=== PATIENT | female | born 1990 | race Caucasian/White ===

== ENCOUNTER 2018-06-12 12:40 | Emergency (ER) | payer OTHER ==
[2018-06-12 12:44] VITALS: BP 134/82
[2018-06-12] MEDS ORDERED: IV NORMAL SALINE 1,000ML 1,000 ML IV SCH (12:52)
--- NOTE | 2018-06-12 13:08 | PHYS DOC ---
Past History Past Medical History: No Pertinent History Past Surgical History: No Surgical History Alcohol Use: None Drug Use: None Adult General Chief Complaint Chief Complaint: VOMITING IN HPI HPI Patient is a 28 year old female at 36 weeks of gestation with LMP of 2018 present with complaining of nausea and vomiting. Patient states she has had nausea and vomiting. x 1-2 a day during her and usually gets treatment with Zofran and unusually coming to hospital for IV fluid treatment. Patient complaining of increasing episodes of nausea and vomiting for the last 2 or 3 days and states she had 3 or 4 episodes of nonbloody vomiting a day. Patient denies abdominal pain, vaginal bleeding or discharge, change of movement, fever and chills, urinary symptoms, diarrhea and constipation. Review of Systems Review of Systems Constitutional: Denies fever or chills [] Eyes: Denies change in visual acuity, redness, or eye pain [] HENT: Denies nasal congestion or sore throat [] Respiratory: Denies cough or shortness of breath [] Cardiovascular: No additional information not addressed in HPI [] GI: Denies abdominal pain, bloody stools or diarrhea , reports nausea and vomiting[] : Denies dysuria or hematuria [] Musculoskeletal: Denies back pain or joint pain [] Integument: Denies rash or skin lesions [] Neurologic: Denies headache, focal weakness or sensory changes [] Endocrine: Denies polyuria or polydipsia [] All other systems were reviewed and found to be within normal limits, except as documented in this note. Current Medications Current Medications Current Medications Medications (Trade) Dose Ordered Sig/[facility] Start Time Stop Time Status Last Admin Dose Admin Ondansetron HCl (Zofran) 4 mg 1X ONCE 06/12/18 13:10 06/12/18 13:11 06/12/18 13:05 4 MG Sodium Chloride 1,000 ml @ 1,000 mls/hr Q1H 06/12/18 12:52 06/12/18 13:51 06/12/18 13:05 1,000 MLS/HR Allergies Allergies Allergies Coded Allergies Type Severity Reaction Last Updated Verified Penicillins Allergy Unknown 06/12/18 Yes Physical Exam Physical Exam Constitutional: Well developed, well nourished, mild distress, non-toxic appearance. [] HENT: Normocephalic, atraumatic, oropharynx dry, no oral exudates, nose normal. [] Eyes: PERRLA, EOMI, conjunctiva normal, no discharge. [] Neck: Normal range of motion, no tenderness, supple, no stridor. [] Cardiovascular:Heart rate regular rhythm, no murmur [] Lungs & Thorax: Bilateral breath sounds clear to auscultation [] Abdomen: Bowel sounds normal, soft, no tenderness, no masses, no pulsatile masses gravid abdomen, no constriction or tenderness. [] Skin: Warm, dry, no erythema, no rash. [] Back: No tenderness, no CVA tenderness. [] Extremities: No tenderness, no cyanosis, no clubbing, ROM intact, no edema. [] Neurologic: Alert and oriented X 3, normal motor function, normal sensory function, no focal deficits noted. [] Psychologic: Affect normal, judgement normal, mood normal. [] Current Patient Data Vital Signs Vital Signs Date Time Temp Pulse Resp B/P (MAP) Pulse Ox O2 Delivery O2 Flow Rate FiO2 06/12/18 12:44 97.7 114 16 96 Room Air EKG EKG [] Radiology/Procedures Radiology/Procedures [] Course & Med Decision Making Course & Med Decision Making Pertinent Labs reviewed. (See chart for details) evaluation of patient in ER showed 28-year-old male patient at the sixth of gestation complaining of nausea and vomiting more than her usual for the last 2 days. Patient treated with IV fluid and Zofran. After Zofran patient developed dry cough and complaining of tightness in her chest with increase of heart rate of 130s. Patient had clear lung sounds and pharyngeal exam and treated with albuterol with improvement of her condition and heart rate. Patient and Zofran frequently before without any reaction. Patient tolerated oral intake and had unremarkable labs and discharged home with instruction to continue her home Zofran and follow up with her NURSE [facility]LE[facility]. Dragon Disclaimer Dragon Disclaimer This electronic medical record was generated, in whole or in part, using a voice recognition dictation system. Departure Departure: Impression: Primary Impression: Hyperemesis gravidarum Disposition: HOME, SELF-CARE (at 1433) Condition: IMPROVED Patient Instructions: Diet - Hyperemesis Gravidarum, Hyperemesis Gravidarum Additional Instructions: Drink plenty of liquids Follow-up with your NURSE [facility]LE[facility] in 3-5 days Return to ER if not getting better Continue home Zofran as needed for nausea and vomiting DONAL ARAYA MD Jun 12, 2018 13:08
[2018-06-12] MEDS ORDERED: ONDANSETRON PF 4 MG/2 ML VIAL. IV ONE (13:10)
[2018-06-12 13:18] LABS: BASO # 0.1 x10^3/uL (0.0-0.2); BASO % 1 % (0-3); EOS # 0.2 x10^3/uL (0.0-0.7); EOS % 1 % (0-3); HEMATOCRIT 33.8 % (36.0-47.0); HEMOGLOBIN 11.1 g/dL (12.0-15.5); LYMPH # 2.4 x10^3/uL (1.0-4.8); LYMPH % 18 % (24-48); MEAN CORPUSCULAR HEMOGLOBIN 28 pg (25-35); MEAN CORPUSCULAR HGB CONC 33 g/dL (31-37); MEAN CORPUSCULAR VOLUME 87 fL (79-100); MONO # 0.9 x10^3/uL (0.0-1.1); MONO % 7 % (0-9); NEUT # 9.6 x10^3uL (1.8-7.7); NEUT % 73 % (31-73); PLATELET COUNT 275 x10^3/uL (140-400); RED BLOOD COUNT 3.89 x10^6/uL (3.50-5.40); RED CELL DISTRIBUTION WIDTH 13.7 % (11.5-14.5); WHITE BLOOD COUNT 13.1 x10^3/uL (4.0-11.0)
[2018-06-12 13:25] LABS: CALCIUM 8.1 mg/dL (8.5-10.1); CREATININE 0.7 mg/dL (0.6-1.0); GFR 100.4; POTASSIUM 3.8 mmol/L (3.5-5.1)
[2018-06-12] MEDS ORDERED: ALBUTEROL SULFATE 2.5 MG/3 ML NEBU. NEB ONE (13:40)
[2018-06-12 14:24] LABS: BACTERIA,URINE FEW /HPF (0-FEW); BILIRUBIN,URINE NEG (NEG); CLARITY,URINE CLOUDY; COLOR,URINE AMBER; GLUCOSE,URINE NEG (NEG); NITRITE,URINE NEG (NEG); RBC,URINE 0 /HPF (0-2); SQUAMOUS EPITHELIAL CELL,UR FEW /LPF; UROBILINOGEN,URINE 0.2 mg/dL (0.2 mg/dL)
== END 2018-06-12 14:42 | disposition home or self-care (01) ==
LOC: ER 12:40
DX: O21.0 Mild hyperemesis gravidarum (principal); Z88.0 Allergy status to penicillin; Z3A.36 36 weeks gestation of pregnancy
CPT/HCPCS: 36415; 80048; 81001; 85025; 94640; 96361; 96374; 99283; J2405; 87086; J7030

== ENCOUNTER 2018-10-02 12:31 | Emergency (ER) | payer OTHER ==
[~2018-10-02] VITALS: Ht 177.8 cm; Wt 83.2 kg
--- NOTE | 2018-10-02 13:03 | PHYS DOC ---
Past History Past Medical History: No Pertinent History Past Surgical History: No Surgical History Alcohol Use: Rarely Drug Use: None Adult General Chief Complaint Chief Complaint: BACK PAIN - NO INJURY HPI HPI 28-year-old female presents with low back pain. Patient woke up this morning and had this low back pressure and pain L2-4. She denies any trauma or overuse. She is currently breast-feeding and has not taken any medications for the pain. She also admits that she feels like she has been battling a bladder infection for at least the last 1 week. She has a history of bladder infections and a history of kidney stone once in the past. She denies fever or chills. Review of Systems Review of Systems Constitutional: Denies fever or chills [] Eyes: Denies change in visual acuity, redness, or eye pain [] HENT: Denies nasal congestion or sore throat [] Respiratory: Denies cough or shortness of breath [] Cardiovascular: No additional information not addressed in HPI [] GI: Denies abdominal pain, nausea, vomiting, bloody stools or diarrhea [] : Denies dysuria or hematuria [] Musculoskeletal: Low back pain[] Integument: Denies rash or skin lesions [] Neurologic: Denies headache, focal weakness or sensory changes [] Endocrine: Denies polyuria or polydipsia [] All other systems were reviewed and found to be within normal limits, except as documented in this note. Allergies Allergies Allergies Coded Allergies Type Severity Reaction Last Updated Verified Penicillins Allergy Unknown 06/12/18 Yes Physical Exam Physical Exam Constitutional: Well developed, well nourished, no acute distress, non-toxic appearance. [] HENT: Normocephalic, atraumatic, bilateral external ears normal, oropharynx moist, no oral exudates, nose normal. [] Eyes: PERRLA, EOMI, conjunctiva normal, no discharge. [] Neck: Normal range of motion, no tenderness, supple, no stridor. [] Cardiovascular:Heart rate regular rhythm, no murmur [] Lungs & Thorax: Bilateral breath sounds clear to auscultation [] Abdomen: Bowel sounds normal, soft, no tenderness, no masses, no pulsatile masses. [] Skin: Warm, dry, no erythema, no rash. [] Back: Mild paraspinal lumbar muscle tenderness bilaterally[] Extremities: No tenderness, no cyanosis, no clubbing, ROM intact, no edema. [] Neurologic: Alert and oriented X 3, normal motor function, normal sensory function, no focal deficits noted. [] Psychologic: Affect normal, judgement normal, mood normal. [] Current Patient Data Vital Signs Vital Signs Date Time Temp Pulse Resp B/P (MAP) Pulse Ox O2 Delivery O2 Flow Rate FiO2 10/02/18 12:31 97.6 106 18 98 Room Air EKG EKG [] Radiology/Procedures Radiology/Procedures [] Course & Med Decision Making Course & Med Decision Making Pertinent Labs and Imaging studies reviewed. (See chart for details) The patient's urinalysis is significant for white cells and leukocyte esterase. Given that she is symptomatic, I will treat her with Keflex for 3 days. We will give first dose in the ED. I don't think her back pain shortly did this, thinking it is musculoskeletal. I will additionally treat her with Flexeril in the ED and a prescription for home. I have explained that she should pump and dump her breast milk while taking this medication. The patient is stable for discharge at this time. [] Dragon Disclaimer Dragon Disclaimer This electronic medical record was generated, in whole or in part, using a voice recognition dictation system. Departure Departure: Impression: Primary Impression: Lumbar paraspinal muscle spasm Additional Impression: UTI (urinary tract infection) Disposition: HOME, SELF-CARE Condition: STABLE Referrals: PCP,UNKNOWN (PCP) Patient Instructions: Low Back Strain with [facility] Scripts Cyclobenzaprine Hcl (CYCLOBENZAPRINE HCL) 10 Mg Tablet 1 TAB PO TID PRN for MUSCLE PAIN, #15 TAB Prov: NAN HODGSON DO 10/02/18 Cephalexin (KEFLEX) 500 Mg Capsule 1 CAP PO BID for uti for 3 Days, #6 CAP Prov: NAN HODGSON DO 10/02/18 Problem Qualifiers Additional Impression: UTI (urinary tract infection) Urinary tract infection type: acute cystitis Hematuria presence: without hematuria Qualified Codes: N30.00 - Acute cystitis without hematuria NAN HODGSON DO Oct 02, 2018 13:03
[2018-10-02 13:05] VITALS: BP 105/67
[2018-10-02 13:14] LABS: BACTERIA,URINE FEW /HPF (0-FEW); BILIRUBIN,URINE NEG (NEG); CLARITY,URINE CLEAR; COLOR,URINE YELLOW; GLUCOSE,URINE NEG (NEG); NITRITE,URINE NEG (NEG); RBC,URINE 0 /HPF (0-2); SQUAMOUS EPITHELIAL CELL,UR FEW /LPF; UROBILINOGEN,URINE 1 mg/dL (0.2 mg/dL)
[2018-10-02] MEDS ORDERED: CEPH-264 PO (13:37)
[2018-10-02] MEDS ORDERED: CYCL-331 PO (13:37)
[2018-10-02] MEDS ORDERED: CEPHALEXIN 250 MG CAPSULE ONE (13:38)
[2018-10-02] MEDS ORDERED: CYCLOBENZAPRINE 10 MG TABLET. ONE (13:38)
[2018-10-02] MEDS ORDERED: CEPHALEXIN 250 MG CAPSULE PO ONE (13:45)
[2018-10-02] MEDS ORDERED: CYCLOBENZAPRINE 10 MG TABLET. PO ONE (13:45)
== END 2018-10-02 13:51 | disposition home or self-care (01) ==
LOC: ER 12:31
DX: N30.00 Acute cystitis without hematuria (principal); M54.5 Low back pain; Z88.0 Allergy status to penicillin
CPT/HCPCS: 81001; 87086; 99283

== ENCOUNTER 2018-11-17 00:23 | Emergency (ER) | payer SELFPAY ==
[~2018-11-17] VITALS: Ht 177.8 cm; Wt 88.7 kg
[~2018-11-17 00:23] MED LIST: CEPH-264 PO; CYCL-331 PO
--- NOTE | 2018-11-17 00:44 | ED.ADGEN ---
Past History Past Medical History: No Pertinent History Past Surgical History: No Surgical History Alcohol Use: Rarely Drug Use: None Adult General Chief Complaint Chief Complaint ".. I ve been having bacterial vaginosis ... like five times since my delivery.. I got discharge again.. and discomfort down there..." HPI HPI Patient is a 28 year old female who presents with history of recurrent episodes of bacterial vaginosis, vaginal discharge and vaginal discomfort. Patient has had previous infections with chlamydia. Has had estimated approximately excess of 100 sexual partners in lifetime. Currently has only been with one partner. Reportedly he has no symptoms. She states she's had repeat treatment for bacterial vaginosis but is unaware of the medicine given. Patient states of delivery was 4 months ago. Patient denies any history immunosuppression. Patient denies any travel. Patient denies any recent sick contacts. Patient states she just completed her period. Pt. states vaginal discomfort discharged resumed after completion of current period. Patient does do bubble baths. Patient states they currently uses condoms with lubricant. Review of Systems Review of Systems Constitutional: Denies fever or chills [] Eyes: Denies change in visual acuity, redness, or eye pain [] HENT: Denies nasal congestion or sore throat [] Respiratory: Denies cough or shortness of breath [] Cardiovascular: No additional information not addressed in HPI [] GI: Complaints of vaginal discomfort and discharge. Denies nausea, vomiting, bloody stools or diarrhea [] : Denies dysuria or hematuria [] Musculoskeletal: Denies back pain or joint pain [] Integument: Denies rash or skin lesions [] Neurologic: Denies headache, focal weakness or sensory changes [] Endocrine: Denies polyuria or polydipsia [] All other systems were reviewed and found to be within normal limits, except as documented in this note. Family History Family History Non-contributory Current Medications Current Medications Current Medications Medications (Trade) Dose Ordered Sig/[facility] Start Time Stop Time Status Last Admin Dose Admin Azithromycin (Zithromax) 1,000 mg 1X ONCE 11/17/18 01:00 11/17/18 02:05 DC 11/17/18 02:25 1,000 MG Ceftriaxone Sodium 1 gm/ Sodium Chloride 50 ml @ 100 mls/hr 1X ONCE 11/17/18 01:00 11/17/18 02:05 DC 11/17/18 02:25 100 MLS/HR Ceftriaxone Sodium (Rocephin) 1 gm STK-MED ONCE 11/17/18 02:21 11/17/18 02:22 DC Lactated Ringer's 1,000 ml @ 1,000 mls/hr Q1H 11/17/18 01:00 11/17/18 02:05 DC 11/17/18 02:26 1,000 MLS/HR Metronidazole (Flagyl) 2,000 mg 1X ONCE 11/17/18 01:00 11/17/18 02:06 DC 11/17/18 02:25 2,000 MG Ondansetron HCl (Zofran) 8 mg 1X ONCE 11/17/18 01:00 11/17/18 02:06 DC 11/17/18 02:25 8 MG Sodium Chloride 50 ml @ As Directed STK-MED ONCE 11/17/18 02:21 11/17/18 02:22 DC Allergies Allergies Allergies Coded Allergies Type Severity Reaction Last Updated Verified Penicillins Allergy Unknown 06/12/18 Yes Physical Exam Physical Exam Constitutional: W moderate distress, non-toxic appearance. [] HENT: Normocephalic, atraumatic, bilateral external ears normal, oropharynx moist, no oral exudates, nose normal. [] Eyes: PERRLA, EOMI, conjunctiva normal, no discharge. [] Neck: Normal range of motion, no tenderness, supple, no stridor. [] Cardiovascular:Heart rate regular rhythm, no murmur [] Lungs & Thorax: Bilateral breath sounds equal at apexes with scattered wheeze on auscultation [] Abdomen: Bowel sounds normal, soft, mild supra pubic tenderness, no masses, no pulsatile masses. [Vaginal - erythema, cervicitis and discharge. Rectal hard stool. No rebound. Skin: Warm, dry, no erythema, no rash. [] Back: No tenderness, no CVA tenderness. [] Extremities: No tenderness, no cyanosis, no clubbing, ROM intact, no edema. [] No psoas sign. Neurologic: Alert and oriented X 3, normal motor function, normal sensory function, no focal deficits noted. [] Psychologic: Affect anxious, judgement normal, mood normal. [] Current Patient Data Vital Signs Vital Signs Date Time Temp Pulse Resp B/P (MAP) Pulse Ox O2 Delivery O2 Flow Rate FiO2 11/17/18 02:50 58 14 134/74 (94) 99 Room Air 11/17/18 00:23 97.8 Lab Results Laboratory Tests Test 11/17/18 00:37 11/17/18 01:25 Urine Collection Type Unknown Urine Color Yellow Urine Clarity Clear Urine pH 6.0 Urine Specific Guthrie 1.010 Urine Protein Neg (NEG-TRACE) Urine Glucose (UA) Neg mg/dL (NEG) Urine Ketones (Stick) Neg mg/dL (NEG) Urine Blood Trace (NEG) Urine Nitrite Neg (NEG) Urine Bilirubin Neg (NEG) Urine Urobilinogen Dipstick 0.2 mg/dL (0.2 mg/dL) Urine Leukocyte Esterase Neg (NEG) Urine RBC 0 /HPF (0-2) Urine WBC Occ /HPF (0-4) Urine Squamous Epithelial Cells Occ /LPF Urine Bacteria 0 /HPF (0-FEW) Urine Test Negative (NEG) Urine Opiates Screen Neg (NEG) Urine Methadone Screen Neg (NEG) Urine Barbiturates Neg (NEG) Urine Phencyclidine Screen Neg (NEG) Urine Amphetamine/Methamphetamine Neg (NEG) Urine Benzodiazepines Screen Neg (NEG) Urine Cocaine Screen Neg (NEG) Urine Cannabinoids Screen Pos (NEG) Urine Ethyl Alcohol Neg (NEG) White Blood Count 7.1 x10^3/uL (4.0-11.0) Red Blood Count 4.26 x10^6/uL (3.50-5.40) Hemoglobin 12.5 g/dL (12.0-15.5) Hematocrit 36.5 % (36.0-47.0) Mean Corpuscular Volume 86 fL (79-100) Mean Corpuscular Hemoglobin 30 pg (25-35) Mean Corpuscular Hemoglobin Concent 34 g/dL (31-37) Red Cell Distribution Width 14.1 % (11.5-14.5) Platelet Count 247 x10^3/uL (140-400) Neutrophils (%) (Auto) 33 % (31-73) Lymphocytes (%) (Auto) 51 % (24-48) H Monocytes (%) (Auto) 10 % (0-9) H Eosinophils (%) (Auto) 6 % (0-3) H Basophils (%) (Auto) 1 % (0-3) Neutrophils # (Auto) 2.4 x10^3uL (1.8-7.7) Lymphocytes # (Auto) 3.6 x10^3/uL (1.0-4.8) Monocytes # (Auto) 0.7 x10^3/uL (0.0-1.1) Eosinophils # (Auto) 0.4 x10^3/uL (0.0-0.7) Basophils # (Auto) 0.1 x10^3/uL (0.0-0.2) Sodium Level 142 mmol/L (136-145) Potassium Level 4.0 mmol/L (3.5-5.1) Chloride Level 107 mmol/L (98-107) Carbon Dioxide Level 26 mmol/L (21-32) Anion Gap 9 (6-14) Blood Urea Nitrogen 14 mg/dL (7-20) Creatinine 0.8 mg/dL (0.6-1.0) Estimated GFR (Cockcroft-Gault) 86.0 Glucose Level 98 mg/dL (70-99) Calcium Level 9.2 mg/dL (8.5-10.1) Total Bilirubin 0.1 mg/dL (0.2-1.0) L Direct Bilirubin < 0.1 mg/dL (0.0-0.2) Aspartate Amino Transferase (AST) 16 U/L (15-37) Alanine Aminotransferase (ALT) 25 U/L (14-59) Alkaline Phosphatase 79 U/L (46-116) Total Protein 6.5 g/dL (6.4-8.2) Albumin 3.5 g/dL (3.4-5.0) Microbiology 11/17/18 Wet Prep - Final, Complete Laboratory Tests Test 11/17/18 00:37 11/17/18 01:25 Urine Collection Type Unknown Urine Color Yellow Urine Clarity Clear Urine pH 6.0 Urine Specific Guthrie 1.010 Urine Protein Neg (NEG-TRACE) Urine Glucose (UA) Neg mg/dL (NEG) Urine Ketones (Stick) Neg mg/dL (NEG) Urine Blood Trace (NEG) Urine Nitrite Neg (NEG) Urine Bilirubin Neg (NEG) Urine Urobilinogen Dipstick 0.2 mg/dL (0.2 mg/dL) Urine Leukocyte Esterase Neg (NEG) Urine RBC 0 /HPF (0-2) Urine WBC Occ /HPF (0-4) Urine Squamous Epithelial Cells Occ /LPF Urine Bacteria 0 /HPF (0-FEW) Urine Test Negative (NEG) Urine Opiates Screen Neg (NEG) Urine Methadone Screen Neg (NEG) Urine Barbiturates Neg (NEG) Urine Phencyclidine Screen Neg (NEG) Urine Amphetamine/Methamphetamine Neg (NEG) Urine Benzodiazepines Screen Neg (NEG) Urine Cocaine Screen Neg (NEG) Urine Cannabinoids Screen Pos (NEG) Urine Ethyl Alcohol Neg (NEG) White Blood Count 7.1 x10^3/uL (4.0-11.0) Red Blood Count 4.26 x10^6/uL (3.50-5.40) Hemoglobin 12.5 g/dL (12.0-15.5) Hematocrit 36.5 % (36.0-47.0) Mean Corpuscular Volume 86 fL (79-100) Mean Corpuscular Hemoglobin 30 pg (25-35) Mean Corpuscular Hemoglobin Concent 34 g/dL (31-37) Red Cell Distribution Width 14.1 % (11.5-14.5) Platelet Count 247 x10^3/uL (140-400) Neutrophils (%) (Auto) 33 % (31-73) Lymphocytes (%) (Auto) 51 % (24-48) H Monocytes (%) (Auto) 10 % (0-9) H Eosinophils (%) (Auto) 6 % (0-3) H Basophils (%) (Auto) 1 % (0-3) Neutrophils # (Auto) 2.4 x10^3uL (1.8-7.7) Lymphocytes # (Auto) 3.6 x10^3/uL (1.0-4.8) Monocytes # (Auto) 0.7 x10^3/uL (0.0-1.1) Eosinophils # (Auto) 0.4 x10^3/uL (0.0-0.7) Basophils # (Auto) 0.1 x10^3/uL (0.0-0.2) Sodium Level 142 mmol/L (136-145) Potassium Level 4.0 mmol/L (3.5-5.1) Chloride Level 107 mmol/L (98-107) Carbon Dioxide Level 26 mmol/L (21-32) Anion Gap 9 (6-14) Blood Urea Nitrogen 14 mg/dL (7-20) Creatinine 0.8 mg/dL (0.6-1.0) Estimated GFR (Cockcroft-Gault) 86.0 Glucose Level 98 mg/dL (70-99) Calcium Level 9.2 mg/dL (8.5-10.1) Total Bilirubin 0.1 mg/dL (0.2-1.0) L Direct Bilirubin < 0.1 mg/dL (0.0-0.2) Aspartate Amino Transferase (AST) 16 U/L (15-37) Alanine Aminotransferase (ALT) 25 U/L (14-59) Alkaline Phosphatase 79 U/L (46-116) Total Protein 6.5 g/dL (6.4-8.2) Albumin 3.5 g/dL (3.4-5.0) Microbiology 11/17/18 Wet Prep - Final, Complete EKG EKG [] Radiology/Procedures Radiology/Procedures [] Course & Med Decision Making Course & Med Decision Making Pertinent Labs and Imaging studies reviewed. (See chart for details). Take Keflex 500 mg 3 times a day for 10 days. Follow-up cultures. At the end of Keflex course take Diflucan 100 mg daily for 3 days. Patient should have partner treated in the event that we are cross infection is occurring after she is treated. Return if any concerns. Stop bubble baths. [] Final Impression Final Impression 1. Cervicitis 2. Bacterial Vaginosis[] 3. Marijuana and Tobacco Use Dragon Disclaimer Dragon Disclaimer This electronic medical record was generated, in whole or in part, using a voice recognition dictation system. Discharge Summary Visit Information Final Diagnosis Problems Medical Problems: (1) Cervicitis Status: Acute Brief Hospital Course Allergies Allergies Coded Allergies Type Severity Reaction Last Updated Verified Penicillins Allergy Unknown 06/12/18 Yes Vital Signs Vital Signs Date Time Temp Pulse Resp B/P (MAP) Pulse Ox O2 Delivery O2 Flow Rate FiO2 11/17/18 02:50 58 14 134/74 (94) 99 Room Air 11/17/18 00:23 97.8 Lab Results Laboratory Tests Test 11/17/18 00:37 11/17/18 01:25 Urine Collection Type Unknown Urine Color Yellow Urine Clarity Clear Urine pH 6.0 Urine Specific Guthrie 1.010 Urine Protein Neg (NEG-TRACE) Urine Glucose (UA) Neg mg/dL (NEG) Urine Ketones (Stick) Neg mg/dL (NEG) Urine Blood Trace (NEG) Urine Nitrite Neg (NEG) Urine Bilirubin Neg (NEG) Urine Urobilinogen Dipstick 0.2 mg/dL (0.2 mg/dL) Urine Leukocyte Esterase Neg (NEG) Urine RBC 0 /HPF (0-2) Urine WBC Occ /HPF (0-4) Urine Squamous Epithelial Cells Occ /LPF Urine Bacteria 0 /HPF (0-FEW) Urine Test Negative (NEG) Urine Opiates Screen Neg (NEG) Urine Methadone Screen Neg (NEG) Urine Barbiturates Neg (NEG) Urine Phencyclidine Screen Neg (NEG) Urine Amphetamine/Methamphetamine Neg (NEG) Urine Benzodiazepines Screen Neg (NEG) Urine Cocaine Screen Neg (NEG) Urine Cannabinoids Screen Pos (NEG) Urine Ethyl Alcohol Neg (NEG) White Blood Count 7.1 x10^3/uL (4.0-11.0) Red Blood Count 4.26 x10^6/uL (3.50-5.40) Hemoglobin 12.5 g/dL (12.0-15.5) Hematocrit 36.5 % (36.0-47.0) Mean Corpuscular Volume 86 fL (79-100) Mean Corpuscular Hemoglobin 30 pg (25-35) Mean Corpuscular Hemoglobin Concent 34 g/dL (31-37) Red Cell Distribution Width 14.1 % (11.5-14.5) Platelet Count 247 x10^3/uL (140-400) Neutrophils (%) (Auto) 33 % (31-73) Lymphocytes (%) (Auto) 51 % (24-48) Monocytes (%) (Auto) 10 % (0-9) Eosinophils (%) (Auto) 6 % (0-3) Basophils (%) (Auto) 1 % (0-3) Neutrophils # (Auto) 2.4 x10^3uL (1.8-7.7) Lymphocytes # (Auto) 3.6 x10^3/uL (1.0-4.8) Monocytes # (Auto) 0.7 x10^3/uL (0.0-1.1) Eosinophils # (Auto) 0.4 x10^3/uL (0.0-0.7) Basophils # (Auto) 0.1 x10^3/uL (0.0-0.2) Sodium Level 142 mmol/L (136-145) Potassium Level 4.0 mmol/L (3.5-5.1) Chloride Level 107 mmol/L (98-107) Carbon Dioxide Level 26 mmol/L (21-32) Anion Gap 9 (6-14) Blood Urea Nitrogen 14 mg/dL (7-20) Creatinine 0.8 mg/dL (0.6-1.0) Estimated GFR (Cockcroft-Gault) 86.0 Glucose Level 98 mg/dL (70-99) Calcium Level 9.2 mg/dL (8.5-10.1) Total Bilirubin 0.1 mg/dL (0.2-1.0) Direct Bilirubin < 0.1 mg/dL (0.0-0.2) Aspartate Amino Transf (AST/SGOT) 16 U/L (15-37) Alanine Aminotransferase (ALT/SGPT) 25 U/L (14-59) Alkaline Phosphatase 79 U/L (46-116) Total Protein 6.5 g/dL (6.4-8.2) Albumin 3.5 g/dL (3.4-5.0) Brief Hospital Course Ms. Dale is a 28 old female who presented with cervicitis. Discharge Information Condition at Discharge: Stable Disposition/Orders: D/C to Home Dischare Medications Current Medications Lactated Ringer's 1,000 ml @ 1,000 mls/hr Q1H IV Last administered on 11/17/18at 02:26; Admin Dose 1,000 MLS/HR; Start 11/17/18 at 01:00; Stop 11/17/18 at 02:05; Status DC Ondansetron HCl (Zofran) 8 mg 1X ONCE IV Last administered on 11/17/18at 02:25; Admin Dose 8 MG; Start 11/17/18 at 01:00; Stop 11/17/18 at 02:06; Status DC Ceftriaxone Sodium 1 gm/ Sodium Chloride 50 ml @ 100 mls/hr 1X ONCE IV Last administered on 11/17/18at 02:25; Admin Dose 100 MLS/HR; Start 11/17/18 at 01:00; Stop 11/17/18 at 02:05; Status DC Azithromycin (Zithromax) 1,000 mg 1X ONCE PO Last administered on 11/17/18at 02:25; Admin Dose 1,000 MG; Start 11/17/18 at 01:00; Stop 11/17/18 at 02:05; Status DC Metronidazole (Flagyl) 2,000 mg 1X ONCE PO Last administered on 11/17/18at 02:25; Admin Dose 2,000 MG; Start 11/17/18 at 01:00; Stop 11/17/18 at 02:06; Status DC Sodium Chloride 50 ml @ As Directed STK-MED ONCE .ROUTE ; Start 11/17/18 at 02:21; Stop 11/17/18 at 02:22; Status DC Ceftriaxone Sodium (Rocephin) 1 gm STK-MED ONCE .ROUTE ; Start 11/17/18 at 02:21; Stop 11/17/18 at 02:22; Status DC Active Scripts Active Diflucan (Fluconazole) 100 Mg Tablet 100 Mg PO DAILY 3 Days Metrogel-Vaginal (Metronidazole) 70 Gm Gel.w.appl 1 Appful VG QHS Keflex (Cephalexin) 500 Mg Capsule 500 Mg PO TID 10 Days Cyclobenzaprine Hcl 10 Mg Tablet 1 Tab PO TID PRN Keflex (Cephalexin) 500 Mg Capsule 1 Cap PO BID 3 Days Dragon Disclaimer This chart was dictated in whole or in part using Voice Recognition software in a busy, high-work load, and often noisy Emergency Department environment. It may contain unintended and wholly unrecognized errors or omissions. SELAM MARC MD November 17, 2018 00:44
[2018-11-17 01:30] LABS: BARBITURATES NEG (NEG); BENZODIAZEPINES NEG (NEG); CANNABINOIDS POS (NEG); COCAINE NEG (NEG); METHADONE NEG (NEG); OPIATES NEG (NEG); PHENCYCLIDINE NEG (NEG)
[2018-11-17 01:34] LABS: BACTERIA,URINE 0 /HPF (0-FEW); BILIRUBIN,URINE NEG (NEG); CLARITY,URINE CLEAR; COLOR,URINE YELLOW; GLUCOSE,URINE NEG (NEG); NITRITE,URINE NEG (NEG); RBC,URINE 0 /HPF (0-2); SQUAMOUS EPITHELIAL CELL,UR OCC /LPF; UROBILINOGEN,URINE 0.2 mg/dL (0.2 mg/dL); WBC,URINE OCC /HPF (0-4)
[2018-11-17 01:35] LABS: AMPHETAMINE/METHAMPHETAMINE NEG (NEG)
[2018-11-17 01:46] LABS: BASO # 0.1 x10^3/uL (0.0-0.2); BASO % 1 % (0-3); EOS # 0.4 x10^3/uL (0.0-0.7); EOS % 6 % (0-3); HEMATOCRIT 36.5 % (36.0-47.0); HEMOGLOBIN 12.5 g/dL (12.0-15.5); LYMPH # 3.6 x10^3/uL (1.0-4.8); LYMPH % 51 % (24-48); MEAN CORPUSCULAR HEMOGLOBIN 30 pg (25-35); MEAN CORPUSCULAR HGB CONC 34 g/dL (31-37); MEAN CORPUSCULAR VOLUME 86 fL (79-100); MONO # 0.7 x10^3/uL (0.0-1.1); MONO % 10 % (0-9); NEUT # 2.4 x10^3uL (1.8-7.7); NEUT % 33 % (31-73); PLATELET COUNT 247 x10^3/uL (140-400); RED BLOOD COUNT 4.26 x10^6/uL (3.50-5.40); RED CELL DISTRIBUTION WIDTH 14.1 % (11.5-14.5); WHITE BLOOD COUNT 7.1 x10^3/uL (4.0-11.0)
[2018-11-17 01:49] LABS: U PREG PATIENT NEGATIVE (NEG)
[2018-11-17 01:57] LABS: ALBUMIN 3.5 g/dL (3.4-5.0); ALK PHOS 79 U/L (46-116); ALT (SGPT) 25 U/L (14-59); ANION GAP 9 (6-14); AST (SGOT) 16 U/L (15-37); BLOOD UREA NITROGEN 14 mg/dL (7-20); CALCIUM 9.2 mg/dL (8.5-10.1); CARBON DIOXIDE 26 mmol/L (21-32); CHLORIDE 107 mmol/L (98-107); CREATININE 0.8 mg/dL (0.6-1.0); GLUCOSE 98 mg/dL (70-99); SODIUM 142 mmol/L (136-145); TOTAL BILIRUBIN 0.1 mg/dL (0.2-1.0); TOTAL PROTEIN 6.5 g/dL (6.4-8.2)
[2018-11-17 02:11] LABS: DIRECT BILIRUBIN < 0.1 mg/dL (0.0-0.2)
[2018-11-17] MEDS ORDERED: cefTRIAXone SODIUM 1 GM VIAL ONE (02:21)
[2018-11-17] MEDS ORDERED: IV NORMAL SALINE 50ML 50 ML ONE (02:21)
[2018-11-17] MEDS: ONDANSETRON PF 4 MG/2 ML VIAL. IV ONE (02:25)
[2018-11-17] MEDS: AZITHROMYCIN 250 MG TABLET. PO ONE (02:25)
[2018-11-17] MEDS: metroNIDAZOLE 500 MG TABLET PO ONE (02:25)
[2018-11-17] MEDS: IV RINGERS SOLUTION,LACTATED 1,000 ML IV SCH (02:26)
[2018-11-17] MEDS ORDERED: CEPH-264 PO (02:28)
[2018-11-17] MEDS ORDERED: METR70GE14 VG (02:28)
[2018-11-17] MEDS ORDERED: FLUC100T7 PO (02:31)
[2018-11-17 02:50] VITALS: BP 134/74
--- NOTE | 2018-11-17 08:12 | RAD ---
Acute abdomen series with chest, 3 views, 11/17/2018: HISTORY: Abdominal pain, vaginal pain There is a moderate amount stool in the right colon. The abdominal gas pattern is otherwise unremarkable. No free air seen in the abdomen. There is no evidence of organomegaly. Lower pelvic calcifications are probably phleboliths. The heart size is normal. No pulmonary infiltrate is seen. The lateral costophrenic angles were not completely included on this image, however, the patient refused to allow additional imaging. IMPRESSION: 1. Increased stool in the right colon. 2. Otherwise no acute abdominal abnormality is detected. Electronically signed by: Max Phillip MD (11/17/2018 8:09 AM) [facility]
[2018-11-18 14:10] LABS: CHLAMYDIA PROBE Negative (Negative)
== END 2018-11-17 02:52 | disposition home or self-care (01) ==
LOC: ER 00:23
DX: N72 Inflammatory disease of cervix uteri (principal); N76.0 Acute vaginitis; B96.89 Other specified bacterial agents as the cause of diseases classified elsewhere; F12.90 Cannabis use, unspecified, uncomplicated; Z72.0 Tobacco use; Z88.0 Allergy status to penicillin
CPT/HCPCS: 36415; 74022; 80048; 80076; 80307; 81001; 81025; 85025; 86592; 86703; 86705; 86709; 86803; 87340; 87480; 87491; 87510; 87591; 87660; 96365; 96375; 99285; J0456; J0696; J2405; J7120; Q0111

== ENCOUNTER 2019-04-20 17:04 | Emergency (ER) | payer MEDICAID ==
[~2019-04-20] VITALS: Ht 177.8 cm; Wt 88.7 kg
[~2019-04-20 17:04] MED LIST changes: +FLUC100T7 PO; +METR70GE14 VG
[2019-04-20] MEDS ORDERED: ONDANSETRON PF 4 MG/2 ML VIAL. IVP ONE (17:30)
[2019-04-20] MEDS ORDERED: IV NORMAL SALINE 1,000ML 1,000 ML IV ONE (17:30)
[2019-04-20] MEDS ORDERED: FAMOTIDINE 20 MG/2 ML VIAL IVP ONE (17:30)
--- NOTE | 2019-04-20 17:32 | PHYS DOC ---
Past History Past Medical History: No Pertinent History Past Surgical History: No Surgical History Smoking: Non-smoker Alcohol Use: None Drug Use: None Adult General Chief Complaint Chief Complaint: ABDOMINAL PAIN IN HPI HPI 28-year-old female at 12 weeks gestation presents with report of inte rmittent left lower quadrant abdominal pain since yesterday with report of syncopal episodes upon standing. Patient also complains of some vaginal discharge. Denies bleeding. Denies fever or chills. Review of Systems Review of Systems Constitutional: Denies fever or chills Eyes: Denies redness or eye pain HENT: Denies nasal congestion or sore throat Respiratory: Denies cough or shortness of breath Cardiovascular: Denies chest pain or palpitations GI: Denies abdominal pain, nausea, or vomiting /MISSILEMAN: Denies dysuria or hematuria; reports and vaginal discharge; denies vaginal bleeding Musculoskeletal: Denies back pain or joint pain Integument: Denies rash or skin lesions Neurologic: Denies headache, focal weakness or sensory changes; reports syncopal episodes Complete systems were reviewed and found to be within normal limits, except as documented in this note. Current Medications Current Medications Current Medications Medications (Trade) Dose Ordered Sig/Govind Start Time Stop Time Status Last Admin Dose Admin Famotidine (Pepcid Vial) 20 mg 1X ONCE 04/20/19 17:30 04/20/19 17:31 Ondansetron HCl (Zofran) 4 mg 1X ONCE 04/20/19 17:30 04/20/19 17:31 Sodium Chloride 1,000 ml @ 1,000 mls/hr 1X ONCE 04/20/19 17:30 04/20/19 18:29 Allergies Allergies Allergies Coded Allergies Type Severity Reaction Last Updated Verified Penicillins Allergy Unknown 06/12/18 Yes Physical Exam Physical Exam Constitutional: Well developed, well nourished, no acute distress, non-toxic appearance HENT: Normocephalic, atraumatic, oropharynx moist Eyes: Conjunctiva normal, no discharge Neck: Normal range of motion, no tenderness, supple Cardiovascular: Heart rate normal, regular rhythm Lungs & Thorax: Bilateral breath sounds clear to auscultation, no wheezing Abdomen: Soft, no tenderness MISSILEMAN: Belem Tucker RN, external genitalia normal, white vaginal discharge noted in vaginal vault, no CMT, bilateral adnexal tenderness on palpation Skin: Warm, dry, no erythema, no rash Extremities: No tenderness, ROM intact, no edema Neurologic: Alert and oriented X 3, normal motor function, normal sensory function, no focal deficits noted Psychologic: Affect normal, judgement normal Current Patient Data Vital Signs Vital Signs Date Time Temp Pulse Resp B/P (MAP) Pulse Ox O2 Delivery O2 Flow Rate FiO2 04/20/19 17:09 98.2 96 18 97 Room Air EKG EKG @1728 Sinus bradycardia at 56bpm, NO ST elevation, QRS 98ms, QT/QTc 414/402ms Radiology/Procedures Radiology/Procedures PROCEDURE: OB <14 WKS Exam: Ultrasound OB less than 14 weeks Indication: Abdominal pain Technique: Real-time grayscale and color Doppler images of the pelvis were obtained by the department manager procurement. Comparisons: None FINDINGS: Uterus measures 12.3 x 9.2 x 8.0 cm. Within the endometrium there is a gestational sac with pole measuring 5.7 cm corresponding to 12 weeks 2 days. heart rate measured at 157 bpm. There is a small subchorionic hemorrhage. Right ovary measures 3.5 x 2.1 x 2.0 cm. Left ovary measures 3.0 x 2.3 x 2.4 cm. Vascular flow noted within the ovaries bilaterally. IMPRESSION: 1. Single live intrauterine gestation of 12 weeks 4 days by LMP with concordant ultrasound. Estimated due date by LMP is 10/29/2019. 2. Dedicated survey is recommended at 1820 weeks. 3. Small subchorionic hemorrhage is noted. Electronically signed by: Hattie Fuentes MD (04/20/2019 6:19 PM) [facility] Course & Med Decision Making Course & Med Decision Making Pertinent Labs and Imaging studies reviewed. (See chart for details) Patient presents with report of syncopal episode with some intermittent left lower quadrant abdominal/pelvic pain and history of vaginal discharge and . Patient neurologically intact. Afebrile. Labs obtained and posted to chart. EKG stable. OB ultrasound with IUP with good heart rate. Pelvic exam performed. Chlamydia/gonorrhea cultures pending. Deferred empiric antibiotic therapy. Wet mount positive for BV. Flagyl provided. Patient stable for discharge with outpatient follow-up with PCP. Discussed findings and plan with patient and family, who acknowledge understanding and agreement. Dragon Disclaimer Dragon Disclaimer This electronic medical record was generated, in whole or in part, using a voice recognition dictation system. Departure Departure: Impression: Primary Impression: Syncope Additional Impressions: Bacterial vaginitis Abdominal pain during in first trimester Disposition: 01 HOME, SELF-CARE Condition: STABLE Referrals: PCP,OMID (PCP) Patient Instructions: Abdominal Pain During , [id number], Bacterial Vaginosis, Tjrz-eq-[id number], Syncope, Ltsi-km-Aqlk Scripts Ondansetron (ONDANSETRON ODT) 4 Mg Tab.rapdis 1 TAB PO PRN Q6-8HRS PRN for NAUSEA, #16 TAB Prov: BRITTON BOLAND DO 04/20/19 Metronidazole (FLAGYL) 500 Mg Tablet 1 TAB PO BID for Vaginitis, #14 TAB Prov: BRITTON BOLAND DO 04/20/19 Problem Qualifiers Primary Impression: Syncope Syncope type: unspecified Qualified Codes: R55 - Syncope and collapse BRITTON BOLAND DO Apr 20, 2019 17:32
--- NOTE | 2019-04-20 17:33 | EKG ---
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
[2019-04-20 18:05] LABS: BASO % 0 % (0-3); EOS # 0.2 x10^3/uL (0.0-0.7); EOS % 2 % (0-3); HEMATOCRIT 37.9 % (36.0-47.0); HEMOGLOBIN 12.9 g/dL (12.0-15.5); LYMPH # 2.4 x10^3/uL (1.0-4.8); LYMPH % 25 % (24-48); MEAN CORPUSCULAR HEMOGLOBIN 30 pg (25-35); MEAN CORPUSCULAR HGB CONC 34 g/dL (31-37); MEAN CORPUSCULAR VOLUME 88 fL (79-100); MONO # 0.7 x10^3/uL (0.0-1.1); MONO % 7 % (0-9); NEUT # 6.3 x10^3uL (1.8-7.7); NEUT % 65 % (31-73); PLATELET COUNT 240 x10^3/uL (140-400); RED BLOOD COUNT 4.31 x10^6/uL (3.50-5.40); RED CELL DISTRIBUTION WIDTH 14.2 % (11.5-14.5); WHITE BLOOD COUNT 9.6 x10^3/uL (4.0-11.0)
[2019-04-20 18:10] VITALS: BP 123/80
--- NOTE | 2019-04-20 18:22 | RAD ---
Exam: Ultrasound OB less than 14 weeks Indication: Abdominal pain Technique: Real-time grayscale and color Doppler images of the pelvis were obtained by the department edge bander operator. Comparisons: None FINDINGS: Uterus measures 12.3 x 9.2 x 8.0 cm. Within the endometrium there is a gestational sac with pole measuring 5.7 cm corresponding to 12 weeks 2 days. heart rate measured at 157 bpm. There is a small subchorionic hemorrhage. Right ovary measures 3.5 x 2.1 x 2.0 cm. Left ovary measures 3.0 x 2.3 x 2.4 cm. Vascular flow noted within the ovaries bilaterally. IMPRESSION: 1. Single live intrauterine gestation of 12 weeks 4 days by LMP with concordant ultrasound. Estimated due date by LMP is 10/29/2019. 2. Dedicated survey is recommended at 1820 weeks. 3. Small subchorionic hemorrhage is noted. Electronically signed by: Hattie Fuentes MD (04/20/2019 6:19 PM) [facility]
[2019-04-20 18:41] LABS: ALBUMIN 3.2 g/dL (3.4-5.0); ALBUMIN/GLOBULIN RATIO 0.9 (1.0-1.7); CALCIUM 8.7 mg/dL (8.5-10.1); CREATININE 0.8 mg/dL (0.6-1.0); MAGNESIUM 1.8 mg/dL (1.8-2.4); POTASSIUM 3.3 mmol/L (3.5-5.1); TOTAL BILIRUBIN 0.2 mg/dL (0.2-1.0); TOTAL PROTEIN 6.6 g/dL (6.4-8.2)
[2019-04-20] MEDS ORDERED: METR500T PO (19:15)
[2019-04-20] MEDS ORDERED: ONDA4TAB12 PO (19:15)
[2019-04-20] MEDS ORDERED: metroNIDAZOLE 500 MG TABLET PO ONE (19:30)
[2019-04-20] MEDS ORDERED: ACETAMINOPHEN 500 MG TABLET PO ONE (19:30)
[2019-04-20 19:47] LABS: BILIRUBIN,URINE NEG (NEG); CLARITY,URINE CLEAR; COLOR,URINE YELLOW; GLUCOSE,URINE NEG (NEG); NITRITE,URINE NEG (NEG); UROBILINOGEN,URINE 0.2 mg/dL (0.2 mg/dL)
[2019-04-20 19:48] LABS: BACTERIA,URINE FEW /HPF (0-FEW); RBC,URINE 0 /HPF (0-2); SQUAMOUS EPITHELIAL CELL,UR MOD /LPF; WBC,URINE 0 /HPF (0-4)
[2019-04-22 19:10] LABS: CHLAMYDIA PROBE Negative (Negative)
== END 2019-04-20 19:39 | disposition home or self-care (01) ==
LOC: ER 17:04
DX: O26.891 Other specified pregnancy related conditions, first trimester (principal); R55 Syncope and collapse; O23.591 Infection of other part of genital tract in pregnancy, first trimester; B96.89 Other specified bacterial agents as the cause of diseases classified elsewhere; Z3A.12 12 weeks gestation of pregnancy; Z88.0 Allergy status to penicillin
CPT/HCPCS: 36415; 76801; 80053; 81001; 83690; 83735; 84702; 85025; 86900; 86901; 87086; 87491; 87591; 93005; 96374; 96375; 99285; J2405; J3490; Q0111; J7030

== ENCOUNTER 2019-06-30 12:29 | Emergency (ER) | payer MEDICAID ==
[~2019-06-30] VITALS: Ht 172.7 cm; Wt 88.7 kg
[~2019-06-30 12:29] MED LIST changes: +METR500T PO; +ONDA4TAB12 PO
--- NOTE | 2019-06-30 12:59 | PHYS DOC ---
Past History Past Medical History: No Pertinent History Past Surgical History: No Surgical History Smoking: Non-smoker Alcohol Use: None Drug Use: None Adult General Chief Complaint Chief Complaint: HEADACHE HPI HPI Patient is a 29-year-old female presents with a headache for the past 3-4 days. There has been nausea associated with it but she is also 22 weeks and has had nausea during her entire . She is 2 para 1001. No vaginal bleeding or discharge. No dysuria or hematuria. Not worst headache of life. 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 No relief with home medicines.[] Review of Systems Review of Systems Constitutional: Denies fever or chills [] Eyes: Denies change in visual acuity, redness, or eye pain [] HENT: Denies nasal congestion or sore throat [] Respiratory: Denies cough or shortness of breath [] Cardiovascular: No chest pain or palpitations[] GI: Denies abdominal pain, bloody stools or diarrhea, see history of present illness [] : Denies dysuria or hematuria [] Musculoskeletal: Denies back pain or joint pain [] Integument: Denies rash or skin lesions [] Neurologic: Denies focal weakness or sensory changes see history of present illness [] Endocrine: Denies polyuria or polydipsia [] All other systems were reviewed and found to be within normal limits, except as documented in this note. Current Medications Current Medications Current Medications Medications (Trade) Dose Ordered Sig/[facility] Start Time Stop Time Status Last Admin Dose Admin Dextrose/Sodium Chloride 1,000 ml @ 0 mls/hr 1X ONCE 06/30/19 13:00 06/30/19 13:01 UNV Metoclopramide HCl (Reglan Vial) 10 mg 1X ONCE 06/30/19 13:00 06/30/19 13:01 UNV Allergies Allergies Allergies Coded Allergies Type Severity Reaction Last Updated Verified Penicillins Allergy Unknown 06/12/18 Yes Physical Exam Physical Exam Constitutional: Well developed, well nourished, no acute distress, non-toxic appearance. [] HENT: Normocephalic, atraumatic, bilateral external ears normal, oropharynx moist, no oral exudates, nose normal. [] Eyes: PERRLA, EOMI, conjunctiva normal, no discharge. [] Neck: Normal range of motion, no tenderness, supple, no stridor. [] Cardiovascular:Heart rate regular rhythm, no murmur [] Lungs & Thorax: Bilateral breath sounds clear to auscultation [] Abdomen: Bowel sounds normal, soft, no tenderness, fundus at level of umbilicus, no pulsatile masses. [] Skin: Warm, dry, no erythema, no rash. [] Back: No tenderness, no CVA tenderness. [] Extremities: No tenderness, no cyanosis, no clubbing, ROM intact, no edema. [] Neurologic: Alert and oriented X 3, normal motor function, normal sensory function, no focal deficits noted. Normal gait, normal rapid repetitive and alternating movements [] Psychologic: Affect normal, judgement normal, mood normal. [] Current Patient Data Vital Signs Vital Signs Date Time Temp Pulse Resp B/P (MAP) Pulse Ox O2 Delivery O2 Flow Rate FiO2 06/30/19 12:35 97.7 71 20 97 Room Air EKG EKG [] Radiology/Procedures Radiology/Procedures [] Course & Med Decision Making Course & Med Decision Making Pertinent Labs and Imaging studies reviewed. (See chart for details) Emergency department course: Patient arrived, was placed in bed, and tolerated exam well. IV access was established and she was given IV fluids along with antiemetics. This resolved her pain. Her blood pressure decreased from 130 systolic on arrival to 106 at the time of this dictation at 1433. Given that she is 22 weeks , attempting to make contact with her CONVERTIBLE POWER SHOVEL OPERATOR at [facility]. Discussed her care with Dr. Man who is covering for her regular doctor. They agree with plan for discharge and will provide laura se follow-up. Medical decision making: This does not appear to be a urinary tract infection, possibly preeclampsia given the elevated blood pressure and headache. There is no evidence of HELLP syndrome. She does have a small amount of ketones in her urine. She was given dextrose-containing IV fluids. She is oral intake tolerant while in the emergency department.[] Dragon Disclaimer Dragon Disclaimer This electronic medical record was generated, in whole or in part, using a voice recognition dictation system. Departure Departure: Impression: Primary Impression: Headache in Disposition: HOME, SELF-CARE Condition: IMPROVED Referrals: LIONEL SHARMA (PCP) Follow-up in 2 days Patient Instructions: General Headache Without Cause Additional Instructions: Follow-up with your regular doctor/CONVERTIBLE POWER SHOVEL OPERATOR in 2 days. Drink plenty of fluids. Return to the ER if unable to tolerate liquids, pain not relieved with oral medi cation, or any other concerns. Scripts Acetaminophen (TYLENOL) 325 Mg Tablet 1-2 TAB PO QID for PAIN, #60 TAB 0 Refills Prov: STEVEN CASTLE DO 06/30/19 Metoclopramide Hcl (REGLAN) 10 Mg Tablet 10 MG PO QID for nausea, vomiting, headache, #30 TAB Prov: STEVEN CASTLE DO 06/30/19 Problem Qualifiers Primary Impression: Headache in Trimester: second trimester Qualified Codes: O26.892 - Other specified related conditions, second trimester; R51 - Headache STEVEN CASTLE DO Jun 30, 2019 12:59
[2019-06-30] MEDS: IV DEXTROSE 5% - 0.9 % NACL 1,000 ML IV ONE (13:22)
[2019-06-30] MEDS: METOCLOPRAMIDE HCL 10 MG/2 ML VIAL. IV ONE (13:25)
[2019-06-30 13:36] LABS: BASO % 0 % (0-3); EOS # 0.1 x10^3/uL (0.0-0.7); EOS % 1 % (0-3); HEMATOCRIT 34.8 % (36.0-47.0); HEMOGLOBIN 11.8 g/dL (12.0-15.5); LYMPH # 2.1 x10^3/uL (1.0-4.8); LYMPH % 20 % (24-48); MEAN CORPUSCULAR HEMOGLOBIN 30 pg (25-35); MEAN CORPUSCULAR HGB CONC 34 g/dL (31-37); MEAN CORPUSCULAR VOLUME 89 fL (79-100); MONO # 0.7 x10^3/uL (0.0-1.1); MONO % 7 % (0-9); NEUT # 7.3 x10^3uL (1.8-7.7); NEUT % 71 % (31-73); PLATELET COUNT 230 x10^3/uL (140-400); RED BLOOD COUNT 3.89 x10^6/uL (3.50-5.40); RED CELL DISTRIBUTION WIDTH 13.6 % (11.5-14.5); WHITE BLOOD COUNT 10.3 x10^3/uL (4.0-11.0)
[2019-06-30 13:43] LABS: CREATININE 0.6 mg/dL (0.6-1.0); POTASSIUM 3.9 mmol/L (3.5-5.1)
[2019-06-30 13:48] LABS: BACTERIA,URINE FEW /HPF (0-FEW); BILIRUBIN,URINE NEG (NEG); CLARITY,URINE HAZY; COLOR,URINE YELLOW; GLUCOSE,URINE NEG (NEG); NITRITE,URINE NEG (NEG); SQUAMOUS EPITHELIAL CELL,UR MOD /LPF; UROBILINOGEN,URINE 0.2 mg/dL (0.2 mg/dL)
[2019-06-30 13:50] LABS: ALBUMIN 2.8 g/dL (3.4-5.0); ALBUMIN/GLOBULIN RATIO 0.8 (1.0-1.7); TOTAL BILIRUBIN 0.1 mg/dL (0.2-1.0); TOTAL PROTEIN 6.1 g/dL (6.4-8.2)
[2019-06-30 14:38] VITALS: BP 97/55
[2019-06-30] MEDS ORDERED: ACET325T9 PO (14:43)
[2019-06-30] MEDS ORDERED: METO10TA81 PO (14:43)
== END 2019-06-30 14:10 | disposition home or self-care (01) ==
LOC: ER 12:29
DX: O26.892 Other specified pregnancy related conditions, second trimester (principal); R51 Headache; R11.0 Nausea; Z3A.22 22 weeks gestation of pregnancy; Z88.0 Allergy status to penicillin
CPT/HCPCS: 36415; 80053; 81001; 85025; 96374; 99284; J2765; J7042

== ENCOUNTER 2019-10-30 21:16 | Emergency (ER) | payer MEDICAID ==
[~2019-10-30] VITALS: Ht 172.7 cm; Wt 88.7 kg
[~2019-10-30 21:16] MED LIST changes: +ACET325T9 PO; +METO10TA81 PO
[2019-10-30 21:20] VITALS: BP 97/55
[2019-10-30] MEDS ORDERED: CEPH-264 PO (21:38)
--- NOTE | 2019-10-30 21:39 | PHYS DOC ---
Past History Past Medical History: No Pertinent History Past Surgical History: No Surgical History Smoking: Non-smoker Alcohol Use: None Drug Use: None General Adult EDM: Chief Complaint: SKIN RASH/ABSCESS HPI: HPI: 29-year-old female presents with rash of the right forearm. The patient had a a couple days ago. The skin around the area of her IV has become erythematous and spread out about 6 cm area. It is warm to the touch. Where the IV was there is an area of tenderness, but no palpable fluctuance. Patient denies fever chills. She is breast-feeding. Review of Systems: Review of Systems: Constitutional: Denies fever or chills Eyes: Denies change in visual acuity HENT: Denies nasal congestion or sore throat Respiratory: Denies cough or shortness of breath Cardiovascular: Denies chest pain or edema GI: Denies abdominal pain, nausea, vomiting, bloody stools or diarrhea : Denies dysuria Musculoskeletal: Denies back pain or joint pain Integument: Rash Neurologic: Denies headache, focal weakness or sensory changes Endocrine: Denies polyuria or polydipsia Lymphatic: Denies swollen glands Psychiatric: Denies depression or anxiety Heart Score: Risk Factors: Risk Factors: DM, Current or recent (<one month) smoker, HTN, HLP, family history of CAD, obesity. Risk Scores: Score 0 - 3: 2.5% MACE over next 6 weeks - Discharge Home Score 4 - 6: 20.3% MACE over next 6 weeks - Admit for Clinical Observation Score 7 - 10: 72.7% MACE over next 6 weeks - Early Invasive Strategies Allergies: Allergies: Allergies Coded Allergies Type Severity Reaction Last Updated Verified Penicillins Allergy Unknown 06/12/18 Yes Physical Exam: PE: Constitutional: Well developed, well nourished, no acute distress, non-toxic appearance. [] HENT: Normocephalic, atraumatic, bilateral external ears normal, oropharynx m oist, no oral exudates, nose normal. [] Eyes: PERRLA, EOMI, conjunctiva normal, no discharge. [] Neck: Normal range of motion, no tenderness, supple, no stridor. [] Cardiovascular:Heart rate regular rhythm, no murmur [] Lungs & Thorax: Bilateral breath sounds clear to auscultation [] Abdomen: Bowel sounds normal, soft, no tenderness, no masses, no pulsatile masses. [] Skin: Warm, erythematous area 60 m in diameter on the right forearm consistent with cellulitis, no palpable abscess or fluctuance [] Back: No tenderness, no CVA tenderness. [] Extremities: No tenderness, no cyanosis, no clubbing, ROM intact, no edema. [] Neurologic: Alert and oriented X 3, normal motor function, normal sensory function, no focal deficits noted. [] Psychologic: Affect normal, judgement normal, mood normal. [] EKG: EKG: [] Radiology/Procedures: Radiology/Procedures: [] Course & Med Decision Making: Course & Med Decision Making Pertinent Labs and Imaging studies reviewed. (See chart for details) Patient appears to have a skin infection. I will treat her with Keflex 3 times daily for 7 days. I have informed her to monitor the size of her infection. If it continues to expand she may need a different antibiotic. She will follow-up with her primary physician if needed. She is stable for discharge at this time. [] Hector Disclaimer: Hector Disclaimer: This electronic medical record was generated, in whole or in part, using a voice recognition dictation system. Departure Departure: Impression: Primary Impression: Cellulitis of right arm Disposition: HOME, SELF-CARE Condition: STABLE Referrals: LIONEL SHARMA (PCP) Patient Instructions: Cellulitis, [id number] Scripts Cephalexin (KEFLEX) 500 Mg Capsule 1 CAP PO TID for cellulitis for 7 Days, #21 CAP 0 Refills Prov: NAN HODGSON DO 10/30/19 NAN HODGSON DO Oct 30, 2019 21:39
[2019-10-30] MEDS ORDERED: CEPHALEXIN 250 MG CAPSULE PO ONE (21:45)
== END 2019-10-30 21:50 | disposition home or self-care (01) ==
LOC: ER 21:16
DX: O99.73 Diseases of the skin and subcutaneous tissue complicating the puerperium (principal); L03.113 Cellulitis of right upper limb; Z98.890 Other specified postprocedural states; Z88.0 Allergy status to penicillin
CPT/HCPCS: 99283